=== PATIENT | female | born 1945 | race Caucasian/White ===

== ENCOUNTER 2024-02-16 12:05 | Inpatient (IN) | payer OTHER ==
[~2024-02-16] VITALS: Ht 154.9 cm; Wt 63.3 kg
[2024-02-16 12:07] VITALS: BP 204/96; PULSE 98; RESP 20; TEMP 98.2; O2SAT 98
[2024-02-16] MEDS: LORazepam 0.5 MG TAB PO ONE (13:08)
[2024-02-16 13:18] LABS: BASOPHILS % (AUTO) 0.4 % (0.0-2.0); EOSINOPHILS # (AUTO) 0.1 K/uL (0-0.4); EOSINOPHILS % (AUTO) 0.5 % (0.0-4.0); HEMATOCRIT 43.3 % (36-48); HEMOGLOBIN 14.5 g/dL (12.0-16.0); LYMPHOCYTES # (AUTO) 0.8 K/uL (2.5-16.5); LYMPHOCYTES % (AUTO) 6.8 % (20.5-51.1); MEAN CORPUSCULAR HEMOGLOBIN 29 pg (27-31); MEAN CORPUSCULAR HGB CONC 34 g/dL (33-37); MEAN CORPUSCULAR VOLUME 85.7 fL (80-94); MONOCYTES # (AUTO) 0.8 K/uL (0.8-1.0); MONOCYTES % (AUTO) 6.8 % (1.7-9.3); NEUTROPHILS # (AUTO) 10.1 K/uL (1.8-7.7); NEUTROPHILS % (AUTO) 85.5 % (42.2-75.2); PLATELET COUNT (AUTO) 314 K/uL (140-450); RED BLOOD CELL COUNT(AUTO) 5.05 MIL/uL (4.20-5.40); WHITE BLOOD COUNT (AUTO) 11.8 K/uL (4.8-10.8)
[2024-02-16 13:31] LABS: ANION GAP 14.4 (8-16); CALCIUM 10.3 mg/dL (8.5-10.1); CARBON DIOXIDE 27.4 mmol/L (21-32); CHLORIDE 103 mmol/L (98-107); CREATININE 0.8 mg/dL (0.6-1.3); GLUCOSE 150 mg/dL (74-106); POTASSIUM 3.8 mmol/L (3.5-5.1); SODIUM SERUM 141 mmol/L (136-145); UREA NITROGEN, BLOOD 15 mg/dL (7-18)
[2024-02-16] MEDS: ASPIRIN 81 MG TAB.CHEW PO ONE (16:14)
[2024-02-16] MEDS: ACETAMINOPHEN 325 MG TAB PO ONE (16:16)
[2024-02-16] MEDS: LOSARTAN 25 MG TAB PO SCH (16:16)
[2024-02-16] MEDS ORDERED: ACETAMINOPHEN 325 MG TAB PO PRN (17:35)
[2024-02-16] MEDS ORDERED: MAG SULF 2000 MG/WATER PREMIX 50 ML IV PRN (17:35)
[2024-02-16] MEDS ORDERED: HYDROcodone/APAP 5/325 MG 1 TAB TAB PO PRN (17:35)
[2024-02-16] MEDS ORDERED: POTASSIUM CHLORIDE 10 MEQ TABER PO PRN (17:35)
[2024-02-16] MEDS ORDERED: MORPHINE SULFATE 2 MG/ML SYR IVP PRN (17:35)
[2024-02-16] MEDS ORDERED: MELATONIN 3 MG TAB PO PRN (17:35)
[2024-02-16] MEDS ORDERED: ONDANSETRON 4 MG/2 ML VIAL IVP PRN (17:35)
[2024-02-16] MEDS ORDERED: POLYETHYLENE GLYCOL 17 GM/PKT PO PRN (17:35)
[2024-02-16] MEDS ORDERED: DEXTROSE 50% 50 ML SYR IVP PRN (17:40)
[2024-02-16] MEDS: hydrALAZINE 20 MG/ML VIAL IVP PRN (18:31)
[2024-02-16 20:00] VITALS: BP 135/77; PULSE 87; RESP 16; TEMP 97.8; O2SAT 95
[2024-02-16 20:30] VITALS: PULSE 87; RESP 16
[2024-02-16] MEDS: BLOOD GLUCOSE MONITORING 1 DEV DEV FS SCH (21:00)
[2024-02-17] VITALS: BP 155/59; PULSE 89; PULSE 94; RESP 16; TEMP 98.3; O2SAT 97
[2024-02-17 04:00] VITALS: BP 156/66; PULSE 78; PULSE 88; RESP 18; TEMP 97.6; O2SAT 99
[2024-02-17 06:24] LABS: BASOPHILS % (AUTO) 0.4 % (0.0-2.0); EOSINOPHILS # (AUTO) 0.1 K/uL (0-0.4); EOSINOPHILS % (AUTO) 1.9 % (0.0-4.0); HEMATOCRIT 40.5 % (36-48); HEMOGLOBIN 13.7 g/dL (12.0-16.0); LYMPHOCYTES # (AUTO) 1.3 K/uL (2.5-16.5); LYMPHOCYTES % (AUTO) 16.7 % (20.5-51.1); MEAN CORPUSCULAR HEMOGLOBIN 29 pg (27-31); MEAN CORPUSCULAR HGB CONC 34 g/dL (33-37); MEAN CORPUSCULAR VOLUME 85.2 fL (80-94); MONOCYTES % (AUTO) 12.2 % (1.7-9.3); NEUTROPHILS # (AUTO) 5.4 K/uL (1.8-7.7); NEUTROPHILS % (AUTO) 68.8 % (42.2-75.2); PLATELET COUNT (AUTO) 296 K/uL (140-450); RED BLOOD CELL COUNT(AUTO) 4.75 MIL/uL (4.20-5.40); RED CELL DISTRIBUTION WIDTH 14.2 % (11.6-13.7); WHITE BLOOD COUNT (AUTO) 7.8 K/uL (4.8-10.8)
[2024-02-17 06:51] LABS: ALANINE AMINOTRANSFERASE 21 U/L (12-78); ALBUMIN 3.1 g/dL (3.4-5.0); ALKALINE PHOSPHATASE 81 U/L (50-136); ANION GAP 12.1 (8-16); ASPARTATE AMINOTRANSFERASE 23 U/L (15-37); CALCIUM 9.9 mg/dL (8.5-10.1); CARBON DIOXIDE 26.9 mmol/L (21-32); CHLORIDE 105 mmol/L (98-107); CREATININE 0.7 mg/dL (0.6-1.3); GLUCOSE 115 mg/dL (74-106); PHOSPHORUS 3.1 mg/dL (2.5-4.9); SODIUM SERUM 140 mmol/L (136-145); TOTAL BILIRUBIN 0.4 mg/dL (0.0-1.0); TOTAL PROTEIN, SERUM 7.1 g/dL (6.4-8.2); UREA NITROGEN, BLOOD 16 mg/dL (7-18)
[2024-02-17 08:00] VITALS: BP 145/70; PULSE 81; PULSE 89; PULSE 96; RESP 18; RESP 19; TEMP 98.2; O2SAT 96; O2SAT 99
[2024-02-17] MEDS: ASPIRIN 81 MG TAB.CHEW PO SCH (08:35)
[2024-02-17 12:00] VITALS: PULSE 123; PULSE 89; RESP 18; TEMP 98.2; O2SAT 96
[2024-02-17 13:41] LABS: FREE T4 (FREE THYROXINE) 1.35 ng/dL (0.76-1.46); THYROID STIMULATING HORMONE 0.65 uIU/mL (0.34-3.74)
[2024-02-17] MEDS: METOPROLOL 25 MG TAB PO SCH (14:01)
[2024-02-17] MEDS: LOSARTAN 25 MG TAB PO SCH (14:01)
[2024-02-17 16:00] VITALS: BP 130/69; PULSE 87; TEMP 98.3; O2SAT 95
[2024-02-17 20:00] VITALS: BP 152/60; PULSE 80; PULSE 81; RESP 17; TEMP 97.8; O2SAT 97
[2024-02-17] MEDS: INSULIN LISPRO SLIDING SCALE 100 UNITS/ML VIAL SUBQ PRN (20:38)
[2024-02-18] VITALS: BP 142/86; PULSE 78; PULSE 81; TEMP 97.9; O2SAT 97
[2024-02-18 04:00] VITALS: BP 159/69; PULSE 75; PULSE 88; TEMP 97.6; O2SAT 95
[2024-02-18 06:42] LABS: BASOPHILS % (AUTO) 0.5 % (0.0-2.0); EOSINOPHILS # (AUTO) 0.1 K/uL (0-0.4); EOSINOPHILS % (AUTO) 1.4 % (0.0-4.0); HEMATOCRIT 40.4 % (36-48); HEMOGLOBIN 13.6 g/dL (12.0-16.0); LYMPHOCYTES # (AUTO) 0.9 K/uL (2.5-16.5); MEAN CORPUSCULAR HEMOGLOBIN 29 pg (27-31); MEAN CORPUSCULAR HGB CONC 34 g/dL (33-37); MONOCYTES # (AUTO) 0.7 K/uL (0.8-1.0); MONOCYTES % (AUTO) 10.9 % (1.7-9.3); NEUTROPHILS # (AUTO) 5.1 K/uL (1.8-7.7); NEUTROPHILS % (AUTO) 74.2 % (42.2-75.2); PLATELET COUNT (AUTO) 288 K/uL (140-450); RED CELL DISTRIBUTION WIDTH 14.1 % (11.6-13.7); WHITE BLOOD COUNT (AUTO) 6.9 K/uL (4.8-10.8)
[2024-02-18 07:01] LABS: ALANINE AMINOTRANSFERASE 18 U/L (12-78); ALBUMIN 2.9 g/dL (3.4-5.0); ALKALINE PHOSPHATASE 77 U/L (50-136); ANION GAP 13.8 (8-16); ASPARTATE AMINOTRANSFERASE 19 U/L (15-37); CALCIUM 9.7 mg/dL (8.5-10.1); CARBON DIOXIDE 26.1 mmol/L (21-32); CHLORIDE 104 mmol/L (98-107); GLUCOSE 131 mg/dL (74-106); PHOSPHORUS 3.6 mg/dL (2.5-4.9); POTASSIUM 3.9 mmol/L (3.5-5.1); SODIUM SERUM 140 mmol/L (136-145); TOTAL BILIRUBIN 0.4 mg/dL (0.0-1.0); TOTAL PROTEIN, SERUM 6.8 g/dL (6.4-8.2); UREA NITROGEN, BLOOD 16 mg/dL (7-18)
[2024-02-18 08:00] VITALS: BP 148/66; PULSE 85; PULSE 92; RESP 18; TEMP 97.9; O2SAT 93; O2SAT 99
[2024-02-18 16:30] VITALS: BP 166/60; PULSE 76; RESP 18; TEMP 98.6; O2SAT 96
[2024-02-18 20:00] VITALS: PULSE 83; RESP 18; O2SAT 96
[2024-02-19 04:00] VITALS: BP 158/75; PULSE 90; RESP 18; TEMP 97.2; O2SAT 96
[2024-02-19 07:13] LABS: BASOPHILS # (AUTO) 0.2 K/uL (0.00-0.22); BASOPHILS % (AUTO) 2.8 % (0.0-2.0); EOSINOPHILS # (AUTO) 0.2 K/uL (0-0.4); EOSINOPHILS % (AUTO) 2.8 % (0.0-4.0); HEMOGLOBIN 13.1 g/dL (12.0-16.0); LYMPHOCYTES # (AUTO) 0.8 K/uL (2.5-16.5); LYMPHOCYTES % (AUTO) 11.7 % (20.5-51.1); MEAN CORPUSCULAR HEMOGLOBIN 28 pg (27-31); MEAN CORPUSCULAR HGB CONC 33 g/dL (33-37); MEAN CORPUSCULAR VOLUME 86.3 fL (80-94); MONOCYTES # (AUTO) 0.7 K/uL (0.8-1.0); MONOCYTES % (AUTO) 10.2 % (1.7-9.3); NEUTROPHILS # (AUTO) 5.3 K/uL (1.8-7.7); NEUTROPHILS % (AUTO) 72.5 % (42.2-75.2); PLATELET COUNT (AUTO) 271 K/uL (140-450); RED BLOOD CELL COUNT(AUTO) 4.63 MIL/uL (4.20-5.40); RED CELL DISTRIBUTION WIDTH 14.6 % (11.6-13.7); WHITE BLOOD COUNT (AUTO) 7.2 K/uL (4.8-10.8)
[2024-02-19 07:48] LABS: ALANINE AMINOTRANSFERASE 19 U/L (12-78); ALBUMIN 2.9 g/dL (3.4-5.0); ALKALINE PHOSPHATASE 74 U/L (50-136); ANION GAP 11.6 (8-16); ASPARTATE AMINOTRANSFERASE 19 U/L (15-37); CALCIUM 9.3 mg/dL (8.5-10.1); CARBON DIOXIDE 27.3 mmol/L (21-32); CHLORIDE 105 mmol/L (98-107); CREATININE 0.8 mg/dL (0.6-1.3); GLUCOSE 127 mg/dL (74-106); MAGNESIUM 1.9 mg/dL (1.8-2.4); PHOSPHORUS 3.8 mg/dL (2.5-4.9); POTASSIUM 3.9 mmol/L (3.5-5.1); SODIUM SERUM 140 mmol/L (136-145); TOTAL BILIRUBIN 0.4 mg/dL (0.0-1.0); TOTAL PROTEIN, SERUM 6.7 g/dL (6.4-8.2); UREA NITROGEN, BLOOD 17 mg/dL (7-18)
[2024-02-19 08:00] VITALS: BP 159/60; PULSE 76; RESP 18; TEMP 98.1; O2SAT 97
[2024-02-19] MEDS: amLODIPine 5 MG TAB PO SCH (09:15)
[2024-02-19] MEDS ORDERED: LOSA-269 PO (15:04)
[2024-02-19] MEDS ORDERED: AMLO-3 PO (15:04)
[2024-02-19] MEDS ORDERED: METO25TA PO (15:04)
[2024-02-19] MEDS ORDERED: ASPI81CT95 PO (15:04)
== END 2024-02-19 15:30 | disposition home or self-care (01) | DRG 305 ==
LOC: MED 12:05 → MMU 17:32 → MTU 18:03
PROVIDERS: ADMIT Family Medicine; ATTEND Family Medicine
DX: I16.0 Hypertensive urgency (principal); R55 Syncope and collapse; E11.8 Type 2 diabetes mellitus with unspecified complications; I10 Essential (primary) hypertension; E03.9 Hypothyroidism, unspecified; F43.20 Adjustment disorder, unspecified; F43.9 Reaction to severe stress, unspecified; Z95.0 Presence of cardiac pacemaker; Z79.899 Other long term (current) drug therapy
CPT/HCPCS: 36415; 71045; 80048; 80053; 82948; 83735; 84100; 84439; 84443; 84484; 85025; 87081; 93005; 97110; 97116; 97163-GP; 97530; 99285; J0360; J1815; Q0092